=== PATIENT | female | born 1970 | race Caucasian/White ===

== ENCOUNTER 2016-11-04 14:45 | Emergency (ER) | payer OTHER ==
--- NOTE | 2016-11-04 14:53 | PDOC ---
History of Present Illness - History of Present Illness Initial Comments: 11/04/16 15:16 The patient is a 45 year old female with no significant past medical hx who presents to the ED complaining of dizziness since this morning. The patient reports she woke up at 0630 this morning with a pressure sensation in her head. She reports she then tried to stand up and notes she felt as if the room was spinning. She is having difficulty walking secondary to her dizziness. Her dizziness is exacerbated with movement. Her dizziness has been constant since this morning and reports associated nausea. She has never experienced this dizziness in the past. The patient states she has been having pain to her neck for a few weeks and has been using a neck brace for relief. She denies a hx of migraines. The patient denies vomiting, headache, tinnitus, double vision, blurriness, paresthesias. The patient denies chest pain, SOB, fever, chills Surgical: Gastric sleeve <Hollie Blanton - Last Filed: 11/04/16 16:35> - General History Source: Patient Exam Limitations: No Limitations <Virginia Lainez - Last Filed: 11/04/16 18:09> - General Chief Complaint: Lightheaded Stated Complaint: DIZZINESS Time Seen by Provider: 11/04/16 14:52 Past History <Hollie Blanton - Last Filed: 11/04/16 16:35> <Virginia Lainez - Last Filed: 11/04/16 18:09> - Past Medical History Allergies/Adverse Reactions: Allergies Allergy/AdvReac Type Severity Reaction Status Date / Time No Known Allergies Allergy Verified 11/04/16 14:52 Home Medications: Ambulatory Orders NK [No Known Home Medication] 11/04/16 Review of Systems - Review of Systems Able to Perform ROS?: Yes Comments:: 11/04/16 15:16 GENERAL/CONSTITUTIONAL: No: fever, chills, weakness, loss of appetite. HEAD, EYES, EARS, NOSE AND THROAT: No: change in vision, double vision, blurriness, ear pain, tinnitus, discharge, sore throat, throat swelling. CARDIOVASCULAR: No: chest pain, lightheadedness, palpitations, syncope RESPIRATORY: No: cough, shortness of breath, wheezing, hemoptysis, stridor. GASTROINTESTINAL: No: nausea, vomiting, abdominal cramping, diarrhea, rectal bleeding, constipation. GENITOURINARY: No: dysuria, hematuria, frequency, urgency, flank pain. MUSCULOSKELETAL: +Neck pain. No: back pain, muscle swelling SKIN: No: lesions, pallor, rash or easy bruising. NEUROLOGIC: +Dizziness. No: headache, paresthesias, weakness ENDOCRINE: No: unexplained weight gain or loss HEMATOLOGIC/LYMPHATIC: No: anemia, easy bleeding, swelling nodes <Hollie Blanton - Last Filed: 11/04/16 16:35> *Physical Exam - Vital Signs Last Vital Signs Temp Pulse Resp BP Pulse Ox 98.1 F 69 15 132/81 100 11/04/16 14:51 11/04/16 14:51 11/04/16 14:51 11/04/16 14:51 11/04/16 14:51 - Physical Exam Comments: 11/04/16 15:16 GENERAL: The patient is in no acute distress. HEAD: Normal with no signs of trauma. EYES: PERRLA, EOMI, sclera anicteric, conjunctiva clear, no nystagmus. ENT: Ears normal, nares patent, oropharynx clear without exudates. Moist mucous membranes. NECK: Normal range of motion, supple without lymphadenopathy, JVD, or masses. LUNGS: Breath sounds equal, clear to auscultation bilaterally. No wheezes, and no crackles. HEART:Regular rate and rhythm, normal S1 and S2 without murmur, rub or gallop. ABDOMEN: Soft, nontender, normoactive bowel sounds. No guarding, no rebound. EXTREMITIES: Normal range of motion, no edema. No clubbing or cyanosis. No erythema, or tenderness. NEUROLOGICAL: Cranial nerves II through XII grossly intact. Normal speech. No focal neurological deficits. MUSCULOSKELETAL: Back nontender to palpation, no CVA tenderness SKIN: Warm, Dry, normal turgor, no rashes or lesions noted. <Hollie Blanton - Last Filed: 11/04/16 16:35> ED Treatment Course - LABORATORY CBC & Chemistry Diagram: 11/04/16 16:00 11/04/16 16:00 - RADIOLOGY Radiograph Interpretation: 11/04/16 16:35 CT/HEAD CT WITHOUT CONTRAST [id number] CT/CERVICAL SPINE CT W/O CONTR Head pressure. Vertigo CT scan of the brain without intravenous contrast. There is minimal volume loss in the high convexity which is nonspecific The ventricles and basal cisterns appear unremarkable. No gross mass lesion, focal infarct or intracranial hemorrhage is identified. Visualized paranasal sinuses and mastoid air cells are well-aerated. The calvarium is intact. Impression: No evidence of a focal intracranial lesion or hemorrhage seen. CT scan of the cervical spine without intravenous contrast Coronal and sagittal reconstruction images were obtained. No gross fracture, subluxation or prevertebral soft tissue swelling is seen. No jumped facets no jumped facets are identified. C5-C6 mild degenerative disc disease with mild anterior spondylosis and minimal central disc bulge. Visualized portion of the airway appears unremarkable. No gross enlarged lymph nodes are identified. Lung windows at the thoracic inlet appear unremarkable. IMPRESSION: The alignment is satisfactory. No gross fracture or subluxation is seen. C5-C6 mild degenerative disc disease and minimal central disc bulge without gross cord or nerve root impingement. Correlate clinically for further evaluation. Reported By: Maddison Lamas MD 11/04/[address]/HEAD CT WITHOUT CONTRAST [id number] CT/CERVICAL SPINE CT W/O CONTR Head pressure. Vertigo CT scan of the brain without intravenous contrast. There is minimal volume loss in the high convexity which is nonspecific The ventricles and basal cisterns appear unremarkable. No gross mass lesion, focal infarct or intracranial hemorrhage is identified. Visualized paranasal sinuses and mastoid air cells are well-aerated. The calvarium is intact. Impression: No evidence of a focal intracranial lesion or hemorrhage seen. CT scan of the cervical spine without intravenous contrast Coronal and sagittal reconstruction images were obtained. No gross fracture, subluxation or prevertebral soft tissue swelling is seen. No jumped facets no jumped facets are identified. C5-C6 mild degenerative disc disease with mild anterior spondylosis and minimal central disc bulge. Visualized portion of the airway appears unremarkable. No gross enlarged lymph nodes are identified. Lung windows at the thoracic inlet appear unremarkable. IMPRESSION: The alignment is satisfactory. No gross fracture or subluxation is seen. C5-C6 mild degenerative disc disease and minimal central disc bulge without gross cord or nerve root impingement. Correlate clinically for further evaluation. Reported By: Maddison Lamas MD 11/04/16 8840 - Medications Given in the ED: ED Medications Discontinued Medications Generic Name Dose Route Start Last Admin Trade Name Freq PRN Reason Stop Dose Admin Meclizine HCl 50 mg 11/04/16 15:05 11/04/16 15:10 Antivert - PO 11/04/16 15:06 50 mg ONCE ONE Administration <AnneHollie fulton - Last Filed: 11/04/16 16:35> - LABORATORY CBC & Chemistry Diagram: 11/04/16 16:00 11/04/16 16:00 <MigelVirginia - Last Filed: 11/04/16 18:09> Medical Decision Making - Medical Decision Making 11/04/16 14:53 A portion of this note was documented by scribe services under my direction. I have reviewed the details of the note, within reason, and agree with the documentation with the following case summary and management plan written by me. Nursing documentation reviewed and incorporated into medical decision making 11/04/16 16:23 This is a 45 yo F with no significant past medical history who presents to the ER with a complaint of dizziness Pt was in her usual state of health until last night She awoke at approximately 5:30 am and drifted back to sleep sometime after this, she developed head pressure that spread upwards in the back of her head After that, she developed vertigo which was unrelenting This worsens when she lays flat She also notes increased symptoms with movement of her head No tinnitus (+) nausea, no vomiting PT has had dizziness in the past, but not like this No headache No head trauma On examination: NEURO: Mental status: The patient is oriented x3. Cranial nerves: Cranial nerves II through XII are intact Motor: The upper extremities are 5 over 5 in all muscle groups. The lower extremities are 5 over 5 in all muscle groups. Sensation: Sensation is intact to light touch throughout. Cerebellar: finger to nose nml Reflexes: 2+ and symmetric in the upper and lower extremities. Gait: requires assistance due to unsteadiness Will do labs Will do EKG Will do Head CT Will give Meclizine Will re assess 11/04/16 16:[address]: No ICH, no infarct Cervical Spine CT: Degenerative disc disease 11/04/16 16:42 Laboratory Tests 11/04/16 11/04/16 16:00 16:18 WBC 6.9 Hgb 13.4 Hct 39.9 Plt Count 321 Urine Blood Negative Urine Nitrite Negative Ur Leukocyte Esterase 1+ H 11/04/16 17:41 Pt remains vertiginous This has improved Pt states she can not take valium I would like to admit this patient She is thinking about it 11/04/16 18:06 PT states she does not want to stay She has 2 Autistic sons at home They can not come here Pt states she has improved Finger to nose nml Will discharge to home Follow up with PMD and with ENT Return to the ER IMMEDIATELY for any other concerns or complaints <Virginia Lainez - Last Filed: 11/04/16 18:09> *DC/Admit/Observation/Transfer - Attestations Scribe Attestion: 11/04/16 15:16 Documentation prepared by Hollie Blanton, acting as medical technologist blood bank for Virginia Lainez MD/DO. <Hollie Blanton - Last Filed: 11/04/16 16:35> - Discharge Dispostion Admit: No <Virginia Lainez - Last Filed: 11/04/16 18:09> Diagnosis at time of Disposition: Vertigo - Discharge Dispostion Disposition: HOME Condition at time of disposition: Good - Referrals Referrals: Kyle Clark MD [Primary Care Provider] - Huan Loja MD [Staff Physician] - - Patient Instructions Printed Discharge Instructions: DI for Benign Paroxysmal Positional Vertigo, Vertigo, Vertigo (Alternative Therapy) Additional Instructions: Yanni Thank you for coming in to the ER today Please take medications as prescribed Please return to the ER at any time if your symptoms worsen or persist, or if you are unable to tolerate the medications Return also if you develop new symptoms Please follow up with your medical doctor within 2-3 days You can also follow up with ENT (Dr Loja) for the vertigo
[2016-11-04 15:04] VITALS: TEMP 98.1; BMI 35.7
[2016-11-04] MEDS ORDERED: SODIUM CHLORIDE 1,000 ML IV STA (15:04)
[2016-11-04] MEDS ORDERED: MECLIZINE HCL 25 MG TABLET (FP) PO ONE (15:05)
[2016-11-04] MEDS ORDERED: ONDANSETRON 4 MG/2 ML VIAL IVPB ONE (15:05)
[2016-11-04] MEDS ORDERED: MECLIZINE HCL 25 MG TABLET (FP) ONE (15:08)
[2016-11-04] MEDS ORDERED: ONDANSETRON 4 MG/2 ML VIAL ONE (15:09)
[2016-11-04 16:26] LABS: BASOPHIL 0.9 % (0-2.0); EOSINOPHIL 0.6 % (0-4.5); MCH 30.3 pg (25.7-33.7); MCHC 33.5 g/dl (32.0-36.0); MEAN CELL VOLUME 90.5 fl (80-96); MEAN PLT VOLUME 7.5 fl (7.5-11.1); PLATELET COUNT 321 K/MM3 (134-434); RDW 13.3 % (11.6-15.6); WHITE BLOOD COUNT 6.9 K/mm3 (4.0-10.0)
[2016-11-04 16:37] LABS: PH,URINE 7.5 (4.5-8); URINE APPEARANCE Clear; URINE BILIRUBIN Negative (NEGATIVE); URINE BLOOD Negative (NEGATIVE); URINE GLUCOSE (UA) Negative (NEGATIVE); URINE KETONE Negative (NEGATIVE); URINE NITRITE Negative (NEGATIVE); URINE PROTEIN Negative (NEGATIVE); URINE UROBILINOGEN 0.2 E.U/dl (0.2-1.0)
[2016-11-04 16:40] LABS: ALK PHOS 45 U/L (32-92); ANION GAP 3 (8-16); BILIRUBIN,TOTAL 0.4 mg/dl (0.2-1.0); CALCIUM 9.4 mg/dl (8.4-10.2); CO2 27 mmol/L (22-28); CPK(DFH) 79 IU/L (26-140); CREATININE 0.7 mg/dl (0.6-1.3); GLUCOSE,RANDOM 96 mg/dl (74-106); SGOT/AST 22 U/L (10-42); SGPT/ALT 15 U/L (10-40); TOT PROT 7.6 g/dl (6.4-8.3)
[2016-11-04 16:40] LABS: URINE COLOR YELLOW; URINE LEUK ESTERASE 1+ (NEGATIVE)
[2016-11-04 16:52] LABS: TROPONIN I (DFP) < 0.03 ng/ml (0.03-0.50)
[2016-11-04 17:45] LABS: URINE BACTERIA FEW /hpf (NEGATIVE); URINE RBC 0-2 /hpf (0-3)
[2016-11-04 18:17] VITALS: BP 107/64; PULSE 58
--- NOTE | 2016-11-08 09:14 | EKG ---
Test Reason : Blood Pressure : / mmHG Vent. Rate : 065 BPM Atrial Rate : 065 BPM P-R Int : 130 ms QRS Dur : 076 ms QT Int : 428 ms P-R-T Axes : 073 017 022 degrees QTc Int : 445 ms NORMAL SINUS RHYTHM NORMAL ECG WHEN COMPARED WITH ECG OF 25-OCT-2006 21:56, NO SIGNIFICANT CHANGE WAS FOUND Confirmed by REY DUONG MD ([id number]) on 11/08/2016 9:14:24 AM Referred By: DR BRAUN Confirmed By:REY DUONG MD
== END 2016-11-04 18:29 | disposition home or self-care (01) ==
LOC: FER 14:45
PROC: 3E033GC Introduction of Other Therapeutic Substance into Peripheral Vein, Percutaneous Approach (ICD-10-PCS; principal; 2016-11-04)
PROC: 3E0337Z Introduction of Electrolytic and Water Balance Substance into Peripheral Vein, Percutaneous Approach (ICD-10-PCS; 2016-11-04)
DX: R42 Dizziness and giddiness (principal)
CPT/HCPCS: 36415; 70450-TC; 72125-TC; 80053; 81003; 81015; 82550; 84484; 85025; 93005; 99284-25

== ENCOUNTER 2020-06-03 14:38 | Emergency (ER) | payer OTHER ==
--- NOTE | 2020-06-03 14:40 | PDOC ---
History of Present Illness - General Chief Complaint: Eye Problem Stated Complaint: RT EYE REDNESS Time Seen by Provider: 06/03/20 14:39 History Source: Patient Exam Limitations: No Limitations - History of Present Illness Initial Comments: 49-year-old female with no past medical history presented to the emergency department for right eyelid swelling for one day. Patient reported she used a different eye cream on her bilateral eyes times three days ago, but her eye swelling began today. She denied the changes in vision, double vision, pain with extraocular motion, fever, chills, chest pain, shortness of breath, vomiting, headache, weakness. Patient denied discharge from [facility], runny nose, changes to hearing. ROS General: denied fever, chills, generalized weakness. HEENT: admitted to eyelid swelling. denied sore throat, rhinorrhea, ear pain. Cardiovascular: denied chest pain, palpitations, syncope, diaphoresis. Respiratory: denied shortness of breath, cough, sputum production, hemoptysis. Gastrointestinal: denied abdominal pain, nausea, vomiting, diarrhea, constipation, blood in stool. Genitourinary: denied dysuria, increased urinary frequency, hematuria, urinary i ncontinence, flank pain. Back: denied back pain. Musculoskeletal: denied joint pain, muscle pain, joint swelling. Neurological: denied headache, dizziness, numbness, tingling, weakness. Integumentary: denied rash, laceration, abrasion. Hematologic/Lymphatic: denied bruising or bleeding. PE Constitutional: Well-nourished, Well-developed, appearing stated age. HEENT: head is normocephalic, atraumatic. EOMI. PERRLA. upper right eye lid swollen throughout the entire lid, mild erythema, no warmth, no eye drainage. 20/20 vision bilaterally. Neck: supple. Full ROM. Cardiovascular: regular heart rhythm. Normal S1 and S2. no murmurs. no pericardial friction rub. Respiratory: clear to auscultation bilaterally. no crackles, rhonchi or wheezing. no stridor. Gastrointestinal: soft, flat, nontender. normal bowel sounds. no rebound, guarding, or masses. Extremities: peripheral pulses intact and equal. no lower extremity edema noted. Neurological: CN 2-12 grossly intact. moves all four extremities. Psych: awake, alert, oriented x3. follows commands. answers questions appropriately. Past History - Medical History Allergies/Adverse Reactions: Allergies Allergy/AdvReac Type Severity Reaction Status Date / Time No Known Allergies Allergy Verified 06/03/20 14:39 Home Medications: Ambulatory Orders NK [No Known Home Medication] 06/03/20 CVA: No COPD: No - Surgical History Cholecystectomy: Yes - Psycho-Social/Smoking History Smoking History: Never smoked Medical Decision Making - Medical Decision Making 49 year old female with no PMH presented to ED for rihgt eye swelling x1 day. Initial Vital Signs Temp Pulse Resp BP Pulse Ox 98.5 F 75 20 123/76 100 06/03/20 14:39 06/03/20 14:39 06/03/20 14:39 06/03/20 14:39 06/03/20 14:39 Do no suspect orbital cellulitis or preseptal cellilitis. No systemic infectious symptoms, no fever. Blepharitis vs contact dermatitis. Advise ibprofen + warm compresses. Optho follow up with Dr. Herrera given, advised to be seen in 2 days. Pt discharged. Discharge - Discharge Information Problems reviewed: Yes Clinical Impression/Diagnosis: Contact dermatitis Qualifiers: Contact dermatitis type: unspecified Contact dermatitis trigger: cosmetics Qualified Code(s): L25.0 - Unspecified contact dermatitis due to cosmetics Blepharitis Qualifiers: Blepharitis type: unspecified type Laterality: right Eyelid: upper Qualified Co de(s): H01.001 - Unspecified blepharitis right upper eyelid Condition: Stable Disposition: HOME - Admission No - Follow up/Referral Referrals: Ross Herrera MD [Staff Physician] - - Patient Discharge Instructions Patient Printed Discharge Instructions: DI for Contact Dermatitis, DI for Hordeolum Additional Instructions: Follow up with Dr. Herrera, an Eye doctor, within 2 days regarding your ER visit. Your care is not complete until you follow up. Apply warm compresses to the area, wet a towel with hot water or put it in the microwave. Take benadryl as needed for swelling/itching. Take as advised on label. You cannot drive or operate machinery on this medication, as it will make you drowsy. Try to take it before bed. Take ibuprofen 600 mg every 6 hours as needed with food for pain. Return to the ER for increasing pain, pain with movement of eye ball, change in vision, fever, chills, nausea, vomiting, lightheadedness, chest pain, or any other new, worsening or concerning symptoms. - Post Discharge Activity Work/Back to School Note: Back to Work
[2020-06-03 14:55] VITALS: BP 123/76; PULSE 75; TEMP 98.5; BMI 24.1
--- NOTE | 2020-06-03 15:10 | PDOC ---
Attending Attestation - Resident Resident Name: Maryjo Riddle - ED Attending Attestation I have performed the following: I have examined & evaluated the patient, The case was reviewed & discussed with the resident, I agree w/resident's findings & plan, Exceptions are as noted - HPI HPI: 06/03/20 15:09 49 years old using new eye cream on right eye presents to the ED with 2-day history of right upper lid swelling and redness mild discomfort. No fever no chills no change in vision no discharge no pain with eye movement - Physicial Exam PE: 06/03/20 15:09 Vitals: Triage Vital signs reviewed General Appearance: No acute distress, well nourished well developed, Head: Atraumatic, Eyes: Pupils equal reactive round, extraocular movement intact, Right upper eyelid slightly red and swollen. No stye noted. Eyelid inverted - Medical Decision Making 06/03/20 15:09 History examination consistent mild blepharitis. Will treat with warm compresses Motrin Benadryl and ophthalmology follow-up no systemic symptoms at this time Findings, need for follow-up and strict return instructions discussed with patient. Discharge - Discharge Information Problems reviewed: Yes Clinical Impression/Diagnosis: Contact dermatitis Qualifiers: Contact dermatitis type: unspecified Contact dermatitis trigger: cosmetics Qualified Code(s): L25.0 - Unspecified contact dermatitis due to cosmetics Blepharitis Qualifiers: Blepharitis type: unspecified type Laterality: right Eyelid: upper Qualified Code(s): H01.001 - Unspecified blepharitis right upper eyelid Condition: Stable Disposition: HOME - Follow up/Referral Referrals: Ross Herrera MD [Staff Physician] - - Patient Discharge Instructions Patient Printed Discharge Instructions: DI for Contact Dermatitis, DI for Hordeolum Additional Instructions: Follow up with Dr. Herrera, an Eye doctor, within 2 days regarding your ER visit. Your care is not complete until you follow up. Apply warm compresses to the area, wet a towel with hot water or put it in the microwave. Take benadryl as needed for swelling/itching. Take as advised on label. You cannot drive or operate machinery on this medication, as it will make you drowsy. Try to take it before bed. Take ibuprofen 600 mg every 6 hours as needed with food for pain. Return to the ER for increasing pain, pain with movement of eye ball, change in vision, fever, chills, nausea, vomiting, lightheadedness, chest pain, or any other new, worsening or concerning symptoms. - Post Discharge Activity Work/Back to School Note: Back to Work
--- OUTSIDE RECORDS SUMMARY | 2020-06-03 15:47 | XMS ---
:1970 [facility] Support Name Relationship Address Phone UE Unavailable Unavailable Unavailable LYNNETTE MCDERMOTT FAMILY/OTHER [address] [place] [address] SOSA MCDERMOTT [address] [facility] [place] [address] Re-disclosure Warning The records that you are about to access may contain information from federally- assisted alcohol or drug abuse programs. If such information is present, then the following federally mandated warning applies: This information has been disclosed to you from records protected by federal confidentiality rules (42 CFR part 2). The federal rules prohibit you from making any further disclosure of this information unless further disclosure is expressly permitted by the written consent of the person to whom it pertains or as otherwise permitted by 42 CFR part 2. A general authorization for the release of medical or other information is NOT sufficient for this purpose. The Federal rules restrict any use of the information to criminally investigate or prosecute any alcohol or drug abuse patient.The records that you are about to access may contain highly sensitive health information, the redisclosure of which is protected by Article 27-F of the [facility] Public Health law. If you continue you may haveaccess to information: Regarding HIV / AIDS; Provided by facilities licensed or operated by the [facility] Office of Mental Health; or Provided by the [facility] Office for People With Developmental Disabilities. If such information is present, then the following [facility] mandated warning applies: This information has been disclosed to you from confidential records which are protected by state law. State law prohibits you from making any further disclosure of this information without the specific written consent of the person to whom it pertains, or as otherwise permitted by law. Any unauthorized further disclosure in violation of state law may result in a fine or senior living sentence or both. A general authorization for the release of medical or other information is NOT sufficient authorization for further disclosure. 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
== END 2020-06-03 15:11 | disposition home or self-care (01) ==
LOC: FER 14:38
DX: H01.001 Unspecified blepharitis right upper eyelid (principal); L25.0 Unspecified contact dermatitis due to cosmetics
CPT/HCPCS: 99283-25

== ENCOUNTER 2020-08-29 13:37 | Emergency (ER) | payer OTHER | END 2020-08-29 14:15 | disposition home or self-care (01) | LOC: JVIRT 13:37 | DX: U07.1 COVID-19 (principal) | CPT/HCPCS: C9803; G2012-GT; U0003 ==

== ENCOUNTER 2021-03-10 04:37 | Day surgery (SDC) | payer OTHER ==
[2021-03-05 16:43] VITALS: BMI 36.6
[2021-03-10 08:40] VITALS: TEMP 97.6
[2021-03-10 09:18] VITALS: BP 115/73; PULSE 56
== END 2021-03-10 09:24 | disposition home or self-care (01) ==
LOC: JASU-ENDO 04:37
PROVIDERS: ATTEND Internal Medicine Gastroenterology
PROC: 0DBL8ZX Excision of Transverse Colon, Via Natural or Artificial Opening Endoscopic, Diagnostic (ICD-10-PCS; principal; 2021-03-10 08:00)
DX: Z12.11 Encounter for screening for malignant neoplasm of colon (principal); Z86.010 Personal history of colon polyps; Z80.0 Family history of malignant neoplasm of digestive organs; K64.8 Other hemorrhoids; D12.3 Benign neoplasm of transverse colon
CPT/HCPCS: 81025; 88305-TC

== ENCOUNTER 2023-02-06 10:50 | Emergency (ER) | payer OTHER ==
[2023-02-06 11:10] VITALS: BP 147/77; PULSE 69; RESP 16; TEMP 98.2; BMI 33.3
== END 2023-02-06 11:30 | disposition home or self-care (01) ==
LOC: FER 10:50
DX: T26.02XA Burn of left eyelid and periocular area, initial encounter (principal); R31.0 Gross hematuria; X19.XXXA Contact with other heat and hot substances, initial encounter
CPT/HCPCS: 99282-25

== ENCOUNTER 2023-10-13 04:18 | Day surgery (SDC) | payer OTHER ==
[2023-10-11 10:51] VITALS: BMI 39.7
[2023-10-13 09:14] VITALS: TEMP 98
[2023-10-13 09:42] VITALS: BP 95/54; PULSE 54; RESP 14
== END 2023-10-13 09:48 | disposition home or self-care (01) ==
LOC: JASU-ENDO 04:18
PROVIDERS: ATTEND Internal Medicine Gastroenterology
PROC: 0DJD8ZZ Inspection of Lower Intestinal Tract, Via Natural or Artificial Opening Endoscopic (ICD-10-PCS; principal; 2023-10-13 08:45)
DX: Z12.11 Encounter for screening for malignant neoplasm of colon (principal); K64.8 Other hemorrhoids; K57.30 Diverticulosis of large intestine without perforation or abscess without bleeding; Z80.0 Family history of malignant neoplasm of digestive organs